=== PATIENT | female | born 1965 | race Caucasian/White ===

== ENCOUNTER 2024-12-21 22:49 | Emergency (ER) | payer OTHER, SELFPAY ==
[2024-12-21 22:50] VITALS: BP 160/114
[2024-12-22 00:02] LABS: % Basophils 0.5 % (0-2); % Eosinophils 1.5 % (0-6); % Immature Granulocytes 0.2 % (0-0.5); % Lymphocytes 28.8 % (20.5-51.1); % Monocytes 7.7 % (1.7-9.3); % Neutrophils 61.3 % (42.2-75.2); Absolute Eosinophils 0.1 10^3/uL (0-0.7); Absolute Lymphocytes 2.6 10^3/uL (1.2-3.4); Absolute Monocytes 0.7 10^3/uL (0.1-0.6); Absolute Neutrophils 5.4 10^3/uL (1.4-6.5); Hematocrit 38.2 % (37.0-47.0); Hemoglobin 13.1 g/dL (12.0-16.0); Mean Corp Hgb Conc. 34.3 g/dL (33.0-37.0); Mean Corpuscular Hgb 29.4 pg (27.0-31.0); Mean Corpuscular Volume 85.7 fL (81.0-99.0); Mean Platelet Volume 9.3 fL (7.4-10.4); Nucleated Red Blood Cells % 0 %; Platelet Count 284 10^3/uL (130-400); Red Blood Cell Count 4.46 10^6/uL (4.20-5.40); Red Cell Dist. Width 13.4 % (11.5-14.5); White Blood Cell Count 8.9 10^3/uL (4.8-10.8)
[2024-12-22 00:21] LABS: ALT (SGPT) 25 U/L (0-35); AST (SGOT) 28 U/L (14-36); Albumin 4.2 g/dl (3.5-5.0); Alkaline Phosphatase 117 U/L (38-126); Blood Urea Nitrogen 19 mg/dl (7-17); Calcium 9.7 mg/dl (8.4-10.2); Carbon Dioxide 28 mmol/L (22-30); Chloride 104 mmol/L (98-107); Glucose 99 mg/dl (70-99); Potassium 3.7 mmol/L (3.5-5.1); Sodium 141 mmol/L (135-145); Total Bilirubin 0.3 mg/dl (0.2-1.3); Total Protein 7.6 g/dl (6.3-8.2); eGFR > 60.00
[2024-12-22 00:25] LABS: Troponin I < 0.012 ng/ml
[2024-12-22 02:31] VITALS: BP 146/101
[2024-12-22 02:38] LABS: Troponin I < 0.012 ng/ml
--- NOTE | 2024-12-22 02:51 | ED.GENMED ---
History of Present Illness
General
Chief Complaint: Chest Pain
Source: patient
Exam Limitations: none
Time Seen by Provider: 12/22/24 01:01
History of Present Illness
History of Present Illness:
59yoF with no significant past medical history presenting for evaluation of chest pain. Patient has had intermittent left-sided chest pain over the past week which worsened with stress. She was moving her car in the driveway this evening and her
dog started barking. She ran up to the dog and started to yell because her kids were sleeping. This was around 9:30 PM this evening. At that time, she started to experience a sudden onset of squeezing left-sided chest pain and felt like her heart
was pounding. Pain did not subside so she came to the ED for evaluation. She is currently feeling improved. She denies any pleuritic pain, shortness of breath, diaphoresis, nausea, vomiting. No prior history of heart disease. She has not seen a
PCP in about 20 years. No tobacco use.
Past History
Past History
ED Past Medical History: None, Asthma (Exercise induced) and Other (Right vocal cord Paralysis)
ED Past Surgical History: (X 2), Gynecological (D&C), Orthopedic (Jose knee replacements) and Other (Partial thyroidectomy)
Social History
Tobacco: Non-smoker
Alcohol: None
Personal:
Living: with family
Phy Exam
General Physical Exam
General Presentation: well appearing and no apparent distress
General age: appears stated age
General Skin: warm and dry
General Habitus: normal
General Mental: alert
ENT Exam
ENT Exam: normocephalic
Cardiovascular Exam
Cardiovascular Exam: regular rate/rhythm, no edema, no murmur and normal peripheral pulses (2+ DP pulses bilaterally)
Pulmonary Exam
Pulmonary Exam: lungs clear, no respiratory distress, no rales, no crackles, no rhonchi and no wheezing
Neurological Exam
Neurological Exam: alert
Maranda Coma Scale
Eye Opening: Spontaneous
Verbal Response: Oriented
Motor Response: Obeys Commands
GCS Total Score: 15
Skin Exam
Skin Exam: normal color and warm/dry
Psychiatric Exam
Psychiatric Exam: normal mood/affect
Scores
Heart Score for Chest Pain Patients
STEMI patient?: No
History: Moderately Suspicious
ECG: Normal
Age: >45 - <65 years
Risk Factors: No Risk Factors
Troponin: </= Normal Limit
Heart Score for Chest Pain Patients: 2
Heart Score Risk: 2.5% MACE over next 6 weeks
Course
Orders/Labs/Results
Orders:
Orders
12/21/24 22:50
Electrocardiogram (*1) Urgent
Reason for Study: Chest Pain
12/21/24 22:51
EKG- Treatment ONCE
12/21/24 23:55
Complete Blood Count/With Diff Urgent
Comprehensive Metabolic Panel Urgent
Troponin I Urgent
12/22/24 01:29
Cardiac Monitoring- Treatment ONCE
EKG- Treatment ONCE
CR Chest - 2 Views Urgent
Comment:
Reason For Exam: CP
12/22/24 02:00
Electrocardiogram (*1) Urgent
Reason for Study: Chest Pain
12/22/24 02:05
Troponin I Urgent
Abnormal Lab Results
12/21/24
23:55
Absolute Monos (auto) 0.7 H 10^3/uL
(0.1-0.6)
BUN 19 H mg/dl
(7-17)
12/21/24 23:55
12/21/24 23:55
Vital Signs
Initial and Last Documented VS:
Initial Vital Signs
Temp Pulse Resp BP Pulse Ox
98.1 F 96 20 160/114 98
12/21/24 22:50 12/21/24 22:50 12/21/24 22:50 12/21/24 22:50 12/21/24 22:50
Last Documented Vital Signs
Temp Pulse Resp BP Pulse Ox
98.1 F 82 18 146/101 98
12/21/24 22:50 12/22/24 02:31 12/22/24 02:31 12/22/24 02:31 12/22/24 02:31
MDM/Problems Addressed
Differential Diagnosis Includes:
59yoF here with chest pain. Intermittent x 1 week. Started to have squeezing chest pain at 9:30pm when she started yelling at her dog. No diaphoresis, radiation pain, vomiting. No known cardiac risk factors although has not seen a PCP in 20 years.
She is mildly hypertensive with otherwise normal vitals. Exam reassuring. Differential diagnosis includes but is not limited to: ACS, angina, musculoskeletal, pneumothorax
Initial ED plan: Cardiac labs and EKG obtained in triage. EKG shows NSR without ischemic changes and troponin WNL. Will check delta troponin/EKG and CXR.
*EKG
Interpreted by ED Provider?: Yes
EKG Intrepretation Date: 12/22/24
Heart Rate: 89
Rate: normal
Rhythm: sinus
[place]: normal axis
Interval: normal interval
QRS Pattern: normal QRS
Ischemia: no ischemia
*Critical Care Note
Total Time (30-74mins, 75-104mins- exclusive of procedures): Not Applicable
Update Note
Update Note:
CXR is normal. Repeat EKG and troponin unchanged. No indication for hospitalization. She was instructed to f/u with a PCP and cardiology. Strict ED return precautions discussed. Patient in agreement with plan and was discharged in stable condition.
ED Attending Note
-
Portions of this chart may have been created with voice recognition software.� Occasional wrong word or��sound alike� substitutions may have occurred due to the inherent limitations of voice recognition software.
Discharge Plan
Departure
Patient Disposition: Home (Routine Discharge)
Date of Disposition: 12/22/24
Time of Disposition: 03:01
Patient with high blood pressure during this ER visit?: Yes
Discharge Problem:
Chest pain
Instructions: Chest Pain DCA Follow Up
Prescriptions:
No Action
promethazine 25 MG tablet
25 mg PO Q6HPRN PRN (Reason: n/v) Qty: 10 0RF
potassium chloride [K-Dur] 10 MEQ tablet,ER particles/crystals
10 meq PO BID Qty: 8 0RF
norethindrone acetate 5 mg tablet
10 mg PO DAILY 10 Days Qty: 20 0RF
doxycycline hyclate 100 mg capsule
100 mg PO BID Qty: 19 0RF
Referrals:
Neisha Yee MD [Family Provider] -
Osvaldo Holliday DO [Active] -
Activity Restrictions/Additional Instructions:
Please call tomorrow to schedule a follow-up with a family doctor and cardiology. Return to the ER with any new or worsening symptoms.
Interventions
Interventions:
*Risk Screen - Suicide Last Done: 12/21/24 22:50
*General Assessment Last Done: 12/22/24 01:17
*Neglect/Abuse Screening Last Done: 12/21/24 22:50
*ED- Fall Risk Assessment Last Done: 12/22/24 01:17
*ED COVID-19 Vaccine History Last Done: 12/22/24 01:17
*Nursing Disposition Last Done: 12/22/24 03:31
ED- Cardiac Assessment Last Done: 12/22/24 01:30
Discharge Date and Time
Discharge Date/Time: 12/22/24 03:31
Print Language: HAITIAN
== END 2024-12-22 03:31 | disposition home or self-care (01) ==
LOC: EMR 22:49
PROVIDERS: Physician Assistant; Student in an Organized Health Care Education/Training Program; EMERGENCY PHYSICIAN Emergency Medicine; FAMILY PHYSICIAN Family Medicine
DX: R07.89 Other chest pain (principal); Z96.653 Presence of artificial knee joint, bilateral
CPT/HCPCS: 99283; 71046; 80053; 84484; 85025; 93005

== ENCOUNTER 2025-02-08 02:32 | Emergency (ER) | payer SELFPAY ==
[2025-02-08 02:32] VITALS: BMI 31.2
[2025-02-08 02:46] VITALS: BP 158/103
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
[2025-02-08] MEDS: TORADOL 30 MG IV (03:24)
[2025-02-08] MEDS: FLEXERIL 10 MG PO (03:24)
[2025-02-08 03:28] VITALS: BP 173/99
[2025-02-08 04:00] VITALS: BP 136/91
== END 2025-02-08 05:21 | disposition home or self-care (01) ==
LOC: EMR 02:32
PROVIDERS: EMERGENCY PHYSICIAN Emergency Medicine; FAMILY PHYSICIAN Family Medicine
DX: M79.605 Pain in left leg (principal); M54.9 Dorsalgia, unspecified; V47.5XXA Car driver injured in collision with fixed or stationary object in traffic accident, initial encounter; Y92.414 Local residential or business street as the place of occurrence of the external cause; Z96.653 Presence of artificial knee joint, bilateral
CPT/HCPCS: 96374; 99284; 72072; 72100; 73522; 73552